=== PATIENT | male | born 1965 | race Hispanic/Latino ===

== ENCOUNTER 2025-04-23 13:30 | Emergency (ER) | payer OTHER, SELFPAY ==
[2025-04-23 13:47] VITALS: BP 140/80; PULSE 72; RESP 18; TEMP 36.4; O2SAT 97; BMI 27.8
[2025-04-23 14:34] LABS: COVID-19 CEPHEID 4-PLEX PCR Negative (Negative); Influenza A - CEPHEID Flu A NEGATIVE (NEGATIVE); Influenza B - CEPHEID Flu B NEGATIVE (NEGATIVE)
--- NOTE | 2025-04-23 15:19 | ED.URI ---
HPI - URI/Sore Throat General Chief Complaint: Upper Respiratory Symptoms Stated Complaint: 2days: cough, SOB Time Seen by Provider: 04/23/25 15:19 Source: patient, RN notes reviewed and old records reviewed Mode of arrival: Ambulatory Limitations: no limitations History of Present Illness HPI Narrative: 59-year-old male with a history of asthma, patient presents with complaint of nasal congestion, cough with clear productive sputum, sore throat, sensation of shortness of breath over the past day or 2. Patient states no fevers but has felt chills. States he has had nasal congestion. He has denies any chest pain or pressure. No nausea or vomiting. No issues with bowel movements or urination. No new swelling in extremities. Patient states that he normally uses his inhaler in the morning and evening at baseline he has not required it more frequently. He states no other daily medications. States he has a facial reconstructive surgery about 10 years ago but no other prior surgeries. No known drug allergies. No tobacco. Related Data Allergies Allergy/AdvReac Type Severity Reaction Status Date / Time No Known Drug Allergies Allergy Verified 04/23/25 13:48 Review of Systems Review of Systems ROS Unobtainable: All systems reviewed & are unremarkable except as noted in HPI and below Patient History Social History Smoking Status: Never smoker Smoking Status: Never smoker Exam Narrative Exam Narrative: GEN: well nourished, well appearing male, alert and oriented x 3, patient appears to be in mild distress. HEENT: Atraumatic, pupils are equal round reactive to light, extraocular movements are intact, nares are clear, TMs are clear with no fluid, there is no conjunctival pallor. Throat is clear without any exudates, erythema, tonsillar enlargement or uvular deviation HEART: Regular rate and rhythm without murmur, clicks, rubs. No edema bilateral lower extremities. LUNGS:Lungs clear to auscultation, no wheezes, rales, crackles, chest moves symmetrically. No tachypnea or accessory muscle use. Patient has a occasional dry cough. No difficulty with speech. No respiratory distress. ABD:bowel sounds normal, soft, non-tender, no guarding, rebound, rigidity, no masses noted, no hepatosplenomegaly :No CVA tenderness MSCL: muscles strength 5/5 upper and lower extremities, full range of motion, normal gait NEURO:CN 2-12 intact, sensation normal. Initial Vital Signs Initial Vital Signs: Vital Signs Temperature 97.5 F L 04/23/25 13:47 Pulse Rate 72 04/23/25 13:47 Respiratory Rate 18 04/23/25 13:47 Blood Pressure 140/80 04/23/25 13:47 Pulse Oximetry 97 04/23/25 13:47 Oxygen Delivery Method Room Air 04/23/25 13:47 Course Orders Ordered: Discontinued Medications Dexamethasone (Dexamethasone 10 Mg/Ml Vial) 10 mg PO NOW ONE Stop: 04/23/25 15:28 Last Admin: 04/23/25 15:32 Dose: 10 mg Documented By: DAMIEN Vital Signs Vital signs: Vital Signs - 8 hr 04/23/25 15:36 Temperature 97.0 F L Pulse Rate 60 Respiratory Rate 18 Blood Pressure 129/89 MDM - URI/Sore Throat Lab Data Labs: Lab Results 04/23/25 Range/Units 13:50 SARS-CoV-2 (PCR) Negative (Negative) Influenza A (RT-PCR) Flu a negative (NEGATIVE) Influenza B (RT-PCR) Flu b negative (NEGATIVE) RSV (PCR) Negative (Negative) MDM Narrative Medical decision making narrative: COVID/influenza/RSV is negative. 59-year-old male well-appearing, normal vitals, patient has symptoms consistent with a upper respiratory infection does have a history of asthma we will give a dose of dexamethasone he has not required his inhaler more frequently. Lungs are clear. COVID/influenza/RSV is negative. Patient notes some sore throat but [facility] criteria is -1 Discharge Plan Departure Patient Disposition: Home Clinical Impression: Upper respiratory infection Instructions: DI for Viral Upper Respiratory Infection -- Adult Activity Restrictions/Additional Instructions: Follow up as needed. Your symptoms seem most consistent with a upper respiratory viral infection these typically last 7-10 days and then resolve. If you have persistent symptoms you should follow up. Please return if you develop new or worsening symptoms, new chest pain or shortness of breath, lightheadedness or passing out, coughing up blood, persistent fevers, persistent vomiting, new swelling in extremities or other new or concerning changes. Stand Alone Forms: Patient Portal/API
[2025-04-23 15:36] VITALS: BP 129/89; PULSE 60; RESP 18; TEMP 36.1
== END 2025-04-23 15:42 | disposition home or self-care (01) ==
PROVIDERS: Emergency Medicine; Emergency Provider Emergency Medicine
DX: J06.9 Acute upper respiratory infection, unspecified (principal); R06.02 Shortness of breath
CPT/HCPCS: 87637; 99283; J1100